=== PATIENT | female | born 1980 | race Caucasian/White ===

== ENCOUNTER 2017-03-01 09:10 | Emergency (ER) | payer SELFPAY ==
[2017-03-01] MEDS ORDERED: IBUPROFEN 600 MG TABLET PO ONE (10:28)
[2017-03-01] MEDS ORDERED: IBUPROFEN 600 MG TABLET ONE (10:33)
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
[2017-03-01 11:39] VITALS: BP 110/64
== END 2017-03-01 11:53 | disposition home or self-care (01) ==
LOC: ER 09:10
DX: S39.92XA Unspecified injury of lower back, initial encounter (principal); F17.200 Nicotine dependence, unspecified, uncomplicated; Y04.8XXA Assault by other bodily force, initial encounter; Y92.009 Unspecified place in unspecified non-institutional (private) residence as the place of occurrence of the external cause